=== PATIENT | female | born 1985 | race American Indian/Alaskan Native ===

== ENCOUNTER 2017-05-29 08:04 | Emergency (ER) | payer MEDICAID ==
[2017-05-29 08:04] VITALS: BMI 21.6
--- NOTE | 2017-05-29 09:20 | RAD ---
PROCEDURE: Left foot dated eight hundred twenty-seven. HISTORY: pain COMPARISON: Comparison made with prior study left foot 03/29/2016 poor FINDINGS: BONES: Current study reveals no evidence of acute displaced fracture nor dislocation. The osseous structures intact. No cortical destructive changes identified JOINTS: Joint spaces preserved. SOFT TISSUES: No evidence of subcutaneous emphysema No radiopaque foreign bodies are identified. OTHER FINDINGS: None. IMPRESSION: Norm no evidence of displaced fracture nor dislocation.
--- NOTE | 2017-05-29 09:33 | C.PDOC ---
History Of Present Illness 31 y/o female presents to ED with complaints of left foot pain for 1 week worsening yesterday which prompted visit to ED today. Patient states she was here 2 months ago for twisting same foot but pain resolved for 1 month and 1/2. 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 Patient denies recent injury, tingling, numbness or any other complaints at this time. Time Seen by Provider: 05/29/17 08:10 Chief Complaint (Nursing): Lower Extremity Problem/Injury History Per: Patient History/Exam Limitations: no limitations Onset/Duration Of Symptoms: Days Current Symptoms Are (Timing): Still Present Past Medical History Reviewed: Historical Data, Nursing Documentation, Vital Signs Vital Signs: Last Vital Signs Temp 98.7 F 05/29/17 11:13 Pulse 89 05/29/17 11:13 Resp 20 05/29/17 11:13 BP 117/77 05/29/17 11:13 Pulse Ox 98 05/29/17 11:28 Family History: States: Unknown Family Hx - Social History Hx Tobacco Use: No Hx Alcohol Use: No Hx Substance Use: No - Immunization History Hx Tetanus Toxoid Vaccination: No Hx Influenza Vaccination: No Hx Pneumococcal Vaccination: No Review Of Systems Except As Marked, All Systems Reviewed And Found Negative. Constitutional: Negative for: Fever, Chills Musculoskeletal: Positive for: Foot Pain. Negative for: Leg Pain Skin: Negative for: Rash Neurological: Negative for: Weakness, Numbness Physical Exam - Physical Exam Appears: Non-toxic Skin: Normal Color, Warm, Dry, No Rash Head: Atraumatic, Normacephalic Oral Mucosa: Moist Neck: Supple Chest: Symmetrical Extremity: Normal ROM, Tenderness (to arch on left foot), Capillary Refill (<2 seconds), No Deformity, Other (Flat foot noted, no erythema no warmth) Pulses: Left Dorsalis Pedis: Normal, Right Dorsalis Pedis: Normal Neurological/Psych: Oriented x3, Normal Speech, Normal Motor, Normal Sensation ED Course And Treatment O2 Sat by Pulse Oximetry: 98 (RA) Pulse Ox Interpretation: Normal - Other Rad left foot X-Ray: Interpreted by Me, Viewed By Me Interpretation: PROCEDURE: Left foot dated eight hundred twenty-seven. HISTORY : pain. COMPARISON: Comparison made with prior study left foot 03/29/2016 poor. FINDINGS: BONES: Current study reveals no evidence of acute displaced fracture nor dislocation. The osseous structures intact. No cortical destructive changes identified. JOINTS: Joint spaces preserved. SOFT TISSUES : No evidence of subcutaneous emphysema No radiopaque foreign bodies are identified. OTHER FINDINGS: None. IMPRESSION: Norm no evidence of displaced fracture nor dislocation. Medical Decision Making Medical Decision Making: Plan: * Xray Ortho shoe by CP and crutch instructions by physical therapist with referral to consultant technology Dr. Tidwell Disposition - Disposition Referrals: Jose Tidwell DPM [Staff Provider] - [facility] [Outside] Disposition: HOME/ ROUTINE Disposition Time: 09:28 Condition: STABLE Additional Instructions: Follow up with Business Analyst Consultant within 2-3 days. Return to ED if feel worse. Elevate your affected foot, put ice pack. Prescriptions: Lidocaine 4% [Lidocaine 4% 50 ml Topical (or)] 1 appl TOP QID #1 bottle Ibuprofen [Motrin Tab] 600 mg PO Q8 #30 tab Instructions: Tenosynovitis (ED) Forms: [facility] (Faroese), Work Excuse - Clinical Impression Clinical Impression: Foot pain - Scribe Statement The provider has reviewed the documentation as recorded by the Antonioibbrandi Miramontes All medical record entries made by the Scribe were at my direction and personally dictated by me. I have reviewed the chart and agree that the record accurately reflects my personal performance of the history, physical exam, medical decision making, and the department course for this patient. I have also personally directed, reviewed, and agree with the discharge instructions and disposition.
[2017-05-29 11:14] VITALS: BP 117/77; PULSE 89; RESP 20; TEMP 98.7
[2017-05-29 11:20] VITALS: O2SAT 98
== END 2017-05-29 11:15 | disposition home or self-care (01) ==
LOC: C.ER 08:04
DX: M79.672 Pain in left foot (principal)
CPT/HCPCS: 73630; 96372; 97116; 97161; 99285; G8978; G8979; G8980; J1885

== ENCOUNTER 2017-09-20 13:58 | Emergency (ER) | payer SELFPAY ==
[2017-09-20 13:58] VITALS: BMI 21.6
[2017-09-20 14:26] VITALS: BP 115/78; PULSE 103; RESP 20; TEMP 99.7; O2SAT 99
[2017-09-20] MEDS ORDERED: guaiFENesin 100 mg/5 ml Syrup UD PO STA (14:39)
--- NOTE | 2017-09-20 14:42 | C.PDOC ---
History Of Present Illness 32 y/o female presents to ED with complaints of mild non productive cough for 3 weeks. 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 Patient denies fever, chills, sob , rash, nausea, vomiting or any other complaints at this time. Time Seen by Provider: 09/20/17 14:31 Chief Complaint (Nursing): Cough, Cold, Congestion History Per: Patient History/Exam Limitations: no limitations Onset/Duration Of Symptoms: Days Current Symptoms Are (Timing): Still Present Past Medical History Reviewed: Historical Data, Nursing Documentation, Vital Signs Vital Signs: Last Vital Signs Temp 99.7 F H 09/20/17 14:22 Pulse 103 H 09/20/17 14:22 Resp 20 09/20/17 14:22 BP 115/78 09/20/17 14:22 Pulse Ox 99 09/20/17 14:42 - Medical History PMH: No Chronic Diseases Surgical History: No Surg Hx Family History: States: No Known Family Hx - Social History Hx Tobacco Use: No Hx Alcohol Use: Yes Hx Substance Use: No - Immunization History Hx Tetanus Toxoid Vaccination: No Hx Influenza Vaccination: No Hx Pneumococcal Vaccination: No Review Of Systems Constitutional: Negative for: Fever, Chills Cardiovascular: Negative for: Chest Pain Respiratory: Positive for: Cough. Negative for: Shortness of Breath Gastrointestinal: Negative for: Nausea, Vomiting Musculoskeletal: Positive for: Other (Rib pain) Skin: Negative for: Rash Neurological: Negative for: Weakness, Numbness Physical Exam - Physical Exam Appears: Non-toxic, No Acute Distress Skin: Normal Color, Warm, Dry, No Rash Head: Atraumatic, Normacephalic Eye(s): bilateral: Normal Inspection Oral Mucosa: Moist Neck: Supple Cardiovascular: Rhythm Regular Respiratory: Normal Breath Sounds, No Rales, No Rhonchi, No Wheezing Gastrointestinal/Abdominal: Soft, No Tenderness, No Guarding, No Rebound Extremity: Normal ROM, No Pedal Edema, Capillary Refill (<2 seconds) Neurological/Psych: Oriented x3 ED Course And Treatment O2 Sat by Pulse Oximetry: 99 (RA) Pulse Ox Interpretation: Normal Medical Decision Making Medical Decision Making: L lower chest wall discomfort, digitally and positionally reproducable with dry non-prod cough. clear lungs, no rash to suspect zoster Disposition Doctor Will See Patient In The: Office Counseled Patient/Family Regarding: Studies Performed, Diagnosis - Disposition Referrals: [facility] [Outside] [facility] [employer] [Outside] Disposition: HOME/ ROUTINE Disposition Time: 14:42 Condition: GOOD Additional Instructions: ice packs to L ribs 1/2 hour per hour, nothing hot Motrin 400-600 mg every 6 hours as needed Daily Dayquil/Nyquil as needed. Instructions: Costochondritis (ED) Forms: [facility] (Upper Sorbian), Work Excuse - Clinical Impression Clinical Impression: Costochondral pain - Scribe Statement The provider has reviewed the documentation as recorded by the Scribrbandi Miramontes All medical record entries made by the Flex were at my direction and personally dictated by me. I have reviewed the chart and agree that the record accurately reflects my personal performance of the history, physical exam, medical decision making, and the department course for this patient. I have also personally directed, reviewed, and agree with the discharge instructions and disposition.
[2017-09-20] MEDS ORDERED: guaiFENesin 100 mg/5 ml Syrup UD ONE (14:49)
== END 2017-09-20 14:49 | disposition home or self-care (01) ==
LOC: C.ER 13:58
DX: R07.1 Chest pain on breathing (principal)

== ENCOUNTER 2018-04-24 06:31 | Emergency (ER) | payer SELFPAY ==
[2018-04-24 06:31] VITALS: BMI 21.6
[2018-04-24 06:38] VITALS: O2SAT 99
[2018-04-24 08:00] LABS: SQUAMOUS EPITHIAL 6 /hpf (0-5); URINE BILIRUBIN NEGATIVE (NEGATIVE); URINE BLOOD 3+ (NEGATIVE); URINE CLARITY Hazy (Clear); URINE COLOR Red (YELLOW); URINE GLUCOSE (UA) NORMAL (Normal); URINE LEUKOCYTE ESTERASE 3+ Leu/uL (Negative); URINE PROTEIN 2+ mg/dL (NEGATIVE); URINE UROBILINOGEN NORMAL mg/dL (0.2-1.0)
[2018-04-24 08:11] LABS: BASO % 0.9 % (0.0-2.0); EOS # 0.1 K/uL (0.0-0.7); EOS % 1.4 % (0.0-4.0); LYMPH # 1.6 K/uL (1.0-4.3); LYMPH % 27.9 % (20.0-40.0); MEAN CORPUSCULAR HEMOGLOBIN 29.7 pg (27.0-31.0); MEAN CORPUSCULAR HGB CONC 34.2 g/dL (33.0-37.0); MEAN PLATELET VOLUME 8.2 fL (7.2-11.7); MONO # 0.6 K/uL (0.0-0.8); NEUT # 3.5 K/uL (1.8-7.0); NEUT % 59.8 % (50.0-75.0); RBC 4.36 Mil/uL (3.80-5.20); RED CELL DISTRIBUTION WIDTH 14.2 % (11.5-14.5); WHITE BLOOD COUNT 5.8 K/uL (4.8-10.8)
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
[2018-04-24 08:57] LABS: ALB/GLOB RATIO 1.3 (1.0-2.1); ALBUMIN 4.5 g/dL (3.5-5.0); CALCIUM 9.2 mg/dl (8.6-10.4); GFR AFRICAN-AMERICAN > 60; GFR NON-AFRICAN AMERICAN > 60
[2018-04-24 09:01] LABS: ALT/SGPT 11 U/L (9-52); AST/SGOT 53 U/L (14-36); BLOOD UREA NITROGEN 10 mg/dL (7-17)
[2018-04-24 09:44] VITALS: BP 120/88; PULSE 90; RESP 18; TEMP 99
== END 2018-04-24 09:44 | disposition home or self-care (01) ==
LOC: C.ER 06:31
DX: N93.9 Abnormal uterine and vaginal bleeding, unspecified (principal)

== ENCOUNTER 2018-05-26 08:53 | Emergency (ER) | payer MEDICAID ==
[2018-05-26 08:53] VITALS: BMI 21.6
[2018-05-26] MEDS ORDERED: Tetanus/Diphtheria Toxoids 0.5 ml Syringe IM ONE ×2 (09:41→11:01)
[2018-05-26] MEDS ORDERED: Sodium Chloride 0.9% 1,000 ML IV ONE (09:41)
[2018-05-26] MEDS ORDERED: Morphine 4 MG/ML VIAL ONE (10:09)
[2018-05-26 10:40] LABS: BASO % 0.3 % (0.0-2.0); EOS % 0.1 % (0.0-4.0); HEMOGLOBIN 13.4 g/dL (11.0-16.0); LYMPH # 2.3 K/uL (1.0-4.3); LYMPH % 23.7 % (20.0-40.0); MEAN CELL VOLUME 86.5 fL (81.0-99.0); MEAN CORPUSCULAR HEMOGLOBIN 29.4 pg (27.0-31.0); MEAN PLATELET VOLUME 8.3 fL (7.2-11.7); MONO # 1.1 K/uL (0.0-0.8); MONO % 11.6 % (0.0-10.0); NEUT # 6.1 K/uL (1.8-7.0); NEUT % 64.3 % (50.0-75.0); NRBC % 0.2 % (0.0-2.0); RBC 4.54 Mil/uL (3.80-5.20)
[2018-05-26 10:41] LABS: HCG,QUALITATIVE URINE NEGATIVE (NEGATIVE); WHITE BLOOD COUNT 9.5 K/uL (4.8-10.8)
[2018-05-26 10:43] LABS: SQUAMOUS EPITHIAL 14 /hpf (0-5); URINE BACTERIA RARE (<OCC); URINE BILIRUBIN NEGATIVE (NEGATIVE); URINE BLOOD 3+ (NEGATIVE); URINE CLARITY Hazy (Clear); URINE COLOR Yellow (YELLOW); URINE GLUCOSE (UA) NORMAL (Normal); URINE LEUKOCYTE ESTERASE 2+ Leu/uL (Negative); URINE PROTEIN NEGATIVE (NEGATIVE); URINE UROBILINOGEN NORMAL mg/dL (0.2-1.0)
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
[2018-05-26 10:47] LABS: ALB/GLOB RATIO 1.2 (1.0-2.1); ALBUMIN 4.7 g/dL (3.5-5.0); ALT/SGPT 27 U/L (9-52); AST/SGOT 23 U/L (14-36); BLOOD UREA NITROGEN 6 mg/dL (7-17); CALCIUM 9.4 mg/dl (8.6-10.4); GFR AFRICAN-AMERICAN > 60; GFR NON-AFRICAN AMERICAN > 60
[2018-05-26 10:49] LABS: BARBITURATES, UR NEGATIVE (NEGATIVE); BENZODIAZEPINES, UR NEGATIVE (NEGATIVE); OPIATES, UR NEGATIVE (NEGATIVE); PHENCYCLIDINE, UR NEGATIVE (NEGATIVE)
[2018-05-26] MEDS ORDERED: Sodium Chloride 0.9% 1,000 ML ONE (10:59)
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
[2018-05-26] MEDS ORDERED: Lidocaine 2% Inj (20ml) INFIL STA (13:11)
[2018-05-26] MEDS ORDERED: Lidocaine 2% MPF (5 ml) Inj ONE (13:17)
[2018-05-26 14:45] VITALS: BP 114/76; PULSE 103; RESP 18; TEMP 99.6; O2SAT 100
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
== END 2018-05-26 14:40 | disposition home or self-care (01) ==
LOC: C.ER 08:53
DX: S02.402A Zygomatic fracture, unspecified side, initial encounter for closed fracture (principal); S03.2XXA Dislocation of tooth, initial encounter; X58.XXXA Exposure to other specified factors, initial encounter; N39.0 Urinary tract infection, site not specified; Z23 Encounter for immunization
CPT/HCPCS: 70450; 70486; 72125; 73030; 73090; 80053; 80320; 80324; 80345; 80346; 80349; 80353; 80358; 80361; 81001; 83992; 84703; 85025; 90471; 90714; 96361; 96374; 99285; J2270; J7030